=== PATIENT | male | born 1975 | race Caucasian/White ===

== ENCOUNTER 2017-07-01 09:16 | Emergency (ER) | payer OTHER ==
--- NOTE | 2017-07-01 10:19 | RAD ---
HISTORY: Right ankle pain COMPARISONS: None VIEWS: 3, Frontal, lateral, and oblique views of the right ankle FINDINGS: BONE DENSITY: Normal. BONES: There is no displaced fracture. JOINTS: There is no arthropathy. ALIGNMENT: There is no dislocation. SOFT TISSUES: Unremarkable. OTHER FINDINGS: None. IMPRESSION: NO ACUTE OSSEOUS INJURY. IF SYMPTOMS PERSIST, RECOMMEND REPEAT IMAGING.
[2017-07-01 11:23] VITALS: BP 116/73
--- NOTE | 2017-07-01 15:27 | ED ---
Wily Holbrook Angela, scribed for Mikey Fermin MD on 07/01/17 at 0952 . Lower Extremity - HPI Summary HPI Summary: This pt is a 41 y/o male presenting to [facility] c/o gradual onset of right ankle pain since mid day yesterday. Pt notes his pain became progressively worse yesterday and couldn't ambulate by last evening. Pt is unsure if he had trauma to his ankle. His pain is aggravated by twisting and weight bearing. His pain is alleviated with rest. Pt states he was putting all his weight on the right side of his foot. He reports his pain is "internal and not on the surface." Pt denies taking any medications for the pain. He denies any weakness, numbness or tingling in LE. - History of Current Complaint Chief Complaint: EDExtremityLower Stated Complaint: RT ANKLE INJURY Time Seen by Provider: 07/01/17 09:48 Hx Obtained From: Patient Mechanism Of Injury: Unknown - per pt Onset of Pain: Hours Onset/Duration: Still Present Severity Initially: Mild Severity Currently: Severe Pain Intensity: 8 Pain Scale Used: 0-10 Numeric Timing: Constant, Lasting Hours Location: Is Discrete @ - right ankle Aggravating Factor(s): Weight Bearing, Other - twisting ankle Alleviating Factor(s): Rest - Allergies/Home Medications Allergies/Adverse Reactions: Allergies Allergy/AdvReac Type Severity Reaction Status Date / Time No Known Allergies Allergy Verified 07/01/17 09:32 PMH/Surg Hx/FS Hx/Imm Hx Endocrine/Hematology History: Denies: Hx Diabetes Cardiovascular History: Denies: Hx Hypertension Infectious Disease History: No Infectious Disease History: Denies: Traveled Outside the [place] in Last 30 Days - Family History Known Family History: Negative: Hypertension, Diabetes - Social History Alcohol Use: None Substance Use Type: Reports: None Smoking Status (MU): Never Smoked Tobacco Review of Systems Negative: Fever, Chills Eyes: Negative ENT: Negative Cardiovascular: Negative Respiratory: Negative Positive: Other - right ankle pain Negative: Weakness, Paresthesia, Numbness All Other Systems Reviewed And Are Negative: Yes Physical Exam - Summary Physical Exam Summary: Appearance: Well-appearing, no pain distress Skin: Warm, dry, color reflects adequate perfusion Head/face: Nml head/face Eyes: Nml eyes ENT: Nml ENT Neck: Supple, non-tender Respiratory: CTA, breath sound present Cardiovascular: RRR Abdomen: Abd soft, non-tender, Bowel: Bowel sounds present Musculoskeletal: RLE: There is mild tenderness pronating the foot and inverting the ankle. There is no laxity. Neurological: Nml neuro, sensory/motor intact, A&Ox3, CN Intact II-III Psychiatric: Nml psychiatric, affect/mood appropriate Triage Information Reviewed: Yes Vital Signs On Initial Exam: Initial Vitals Temp Pulse Resp BP Pulse Ox 98.5 F 64 18 118/58 99 07/01/17 09:29 07/01/17 09:29 07/01/17 09:29 07/01/17 09:29 07/01/17 09:29 Vital Signs Reviewed: Yes Diagnostics - Vital Signs Vital Signs Temp Pulse Resp BP Pulse Ox 07/01/17 09:29 98.5 F 64 18 118/58 99 - Laboratory Lab Statement: Any lab studies that have been ordered have been reviewed, and results considered in the medical decision making process. - Radiology Right ankle XR Xray Interpretation: No Acute Changes - IMPRESSION: No acute osseous injury. If symptoms persist, recommend repeat imaging. ED physician has reviewed this radiology report and agrees. Radiology Interpretation Completed By: Radiologist Re-Evaluation - Re-Evaluation First Eval Re-Evaluation Time: 11:03 Comment: I reviewed the XR results with the pt. Lower Extremity Course/Dx - Course Course Of Treatment: Mr. Mc presented with no known trauma to his right ankle but several days of gradually increasing lateral pain with weight bearing or inversion. X-ray was negative. I see no evidence for gout or septic arthritis and will treat him conservatively with anti-inflammatories and rest. - Diagnoses Provider Diagnoses: Ankle inflammation Discharge - Discharge Plan Condition: Stable Disposition: HOME Patient Education Materials: Swollen Ankle Joint (ED) Referrals: Kristine Mcgill MD [Medical Doctor] - Cosmo Han MD [Primary Care Provider] - Additional Instructions: Please follow up with your primary care provider. Follow up with orthopedics, Dr. Mcgill, if your pain does not improve in 2-3 days. Recommend ibuprofen for the pain. Use crutches for comfort. RETURN TO THE ED FOR ANY WORSENING SYMPTOMS. The documentation as recorded by the Wily aly Angela accurately reflects the service I personally performed and the decisions made by me, Mikey Fermin MD.
== END 2017-07-01 11:22 | disposition home or self-care (01) ==
LOC: ED 09:16
DX: L08.9 Local infection of the skin and subcutaneous tissue, unspecified (principal); M25.571 Pain in right ankle and joints of right foot; R53.1 Weakness
CPT/HCPCS: 99282